=== PATIENT | male | born 1975 | race Two or more races ===

== ENCOUNTER 2021-03-13 08:36 | Inpatient (IN) | payer MEDICAID ==
[2021-03-07 15:49] LABS: BASOPHILS % (AUTO) 0.4 % (0-1); EOSINOPHILS # (AUTO) 0.1 X10'3 (0-0.9); EOSINOPHILS % (AUTO) 1.8 % (0-6); LYMPHOCYTES # (AUTO) 0.9 X10'3 (1.1-4.8); LYMPHOCYTES % (AUTO) 26.5 % (21-51); MEAN CORPUSCULAR HEMOGLOBIN 32.5 PG (27.0-31.0); MEAN CORPUSCULAR HGB CONC 34.7 g/dL (33.0-36.5); MEAN CORPUSCULAR VOLUME 93.6 FL (78-98); MEAN PLATELET VOLUME 7.9 FL (7.4-10.4); MONOCYTES # (AUTO) 0.4 X10'3 (0-0.9); MONOCYTES % (AUTO) 10.7 % (2-12); NEUTROPHILS % (AUTO) 60.6 % (42-75); PRE OP HEMATOCRIT 38.3 % (42.0-52.0); PRE OP HEMOGLOBIN 13.3 g/dL (14.0-17.9); PRE OP PLATELET COUNT 206 X10'3 (140-440); RED BLOOD COUNT 4.09 X10'6 (4.70-6.10); RED CELL DISTRIBUTION WIDTH 13.5 % (11.5-14.5)
[2021-03-07 16:15] LABS: ALBUMIN 4.2 G/DL (3.4-5.0); ALBUMIN/GLOBULIN RATIO 1.1 (1.1-1.5); ALKALINE PHOSPHATASE 96 IU/L (46-116); BLOOD UREA NITROGEN 12 MG/DL (7-18); CALCIUM 9.1 MG/DL (8.5-10.1); CHLORIDE 105 MMOL/L (99-107); CREATININE 0.86 MG/DL (0.60-1.10); PRE OP ALT 37 U/L (30-65); PRE OP ANION GAP 6 (8-16); PRE OP AST 21 U/L (10-37); PRE OP BILIRUB, TOTAL 0.3 MG/DL (0.0-1.0); PRE OP GLUCOSE 94 MG/DL (70-104); PRE OP POTASSIUM 4.3 MMOL/L (3.4-5.1); PRE OP SODIUM 140 MMOL/L (135-145); TOTAL PROTEIN 7.9 G/DL (6.4-8.2); eGFR > 90 ML/MIN
[2021-03-13] VITALS (20 sets, daily range): BP systolic 118–166; BP diastolic 58–98
[~2021-03-13] VITALS: Ht 167.6 cm; Wt 79.8 kg
[2021-03-13] MEDS: INDOCYANINE GREEN 25 MG/10 ML VIAL IV ONE ×2 (05:30→13:55)
[~2021-03-13 08:36] MED LIST: LISI10TA27 PO; MALTODEXTRIN/FRUCTOSE 0.68 KCAL/ML LIQUID 296ML BOTTLE PO ONE; ceFOXitin 2GM-NS 100mL ADDvant 100 ML IV ONE; famotidine 20mg tablet PO ONE; heparin, porcine 5000 units/ml vial SQ ONE; metroNIDAZOLE-Flagyl 500mg/NS 100ML IVPB IV ONE; ringers solution, lacted 1,000 ML IV SCH
[2021-03-13] MEDS ORDERED: BUPIVAcaine/PF 2.5mg/ml (0.25%) 10ml vial ONE (12:01)
[2021-03-13] MEDS ORDERED: povidone-iodine 10% topical ointment 28.4gm TP ONE (12:01)
[2021-03-13] MEDS ORDERED: LIDOcaine 1% W/epiNEPHrine 1:100,000 20ml vial ONE (12:01)
[2021-03-13] MEDS ORDERED: midazolam 1 mg/ML 2ml injection ONE (12:29)
[2021-03-13] MEDS ORDERED: fentaNYL /PF 50mcg/ml 5ml ampule ONE (12:29)
[2021-03-13] MEDS ORDERED: sevoflurane 250ml liquid IH ONE (12:35)
[2021-03-13] MEDS ORDERED: propofol inj 20 ML IV ONE ×2 (13:02→15:20)
[2021-03-13] MEDS ORDERED: rocuronium 10mg/ml inj IV ONE ×2 (13:02→15:23)
[2021-03-13] MEDS ORDERED: ondansetron/PF 4mg/2ml inj ONE (13:02)
[2021-03-13] MEDS ORDERED: LIDOcaine 2% (20mg/ml) 5ml vial ONE (13:02)
[2021-03-13] MEDS ORDERED: dexamethasone sod phosphate 4mg/ml inj. ONE (13:02)
[2021-03-13] MEDS ORDERED: ondansetron/PF 4mg/2ml inj IV PRN (14:55)
[2021-03-13] MEDS ORDERED: labetalol 20mg/4ml (5mg/ml) syringe IV PRN (14:55)
[2021-03-13] MEDS ORDERED: proCHLORperazine 10 MG/2 ml inj IV PRN (14:55)
[2021-03-13] MEDS ORDERED: acetaminophen 1,000mg/100ml IV 100 ML IV PRN (14:55)
[2021-03-13] MEDS ORDERED: morphine 2 MG/ML inj. syringe IV PRN (14:55)
[2021-03-13] MEDS ORDERED: meperidine/PF 25mg/ml syringe IV PRN ×2 (14:55)
[2021-03-13] MEDS ORDERED: ringers solution, lacted 1,000 ML IV SCH (14:55)
[2021-03-13] MEDS ORDERED: hydrALAZINE 20mg/ml inj. IV PRN (14:55)
[2021-03-13] MEDS ORDERED: morphine 10mg/ml inj. ONE (17:52)
[2021-03-13] MEDS ORDERED: sugammadex 200mg/2ml injection IV ONE (18:19)
[2021-03-13] MEDS ORDERED: naloxone 0.4 mg/ml inj IV PRN (18:40)
--- NOTE | 2021-03-13 18:41 | NUR ---
Received from OR via , accompanied by Anesthesiologist DR HUERTA and report given by Anesthesiolgist. PT PRESENTS WITH 20 G RIGHT HAND, 2 BROOKLYNN DRAINS ABD DRESSING DRY AND INTACT. VSS. Addendum: 03/13/21 at 1852 by Roxi Alcaraz RN, RN Amended: Links added.
[2021-03-13] MEDS ORDERED: HYDROmorph./NS 0.2 mg/ml CADD 100 ML IV SCH (19:00)
[2021-03-13] MEDS: meperidine/PF 25mg/ml syringe IV PRN ×2 (19:02→19:22)
[2021-03-13] MEDS: morphine 4 MG/ML inj SYRINge IV PRN ×2 (19:09→19:16)
[2021-03-13] MEDS: HYDROmorph./NS 0.2 mg/ml CADD 100 ML IV SCH ×3 (19:48→23:00)
[2021-03-13] MEDS: heparin, porcine 5000 units/ml vial SQ SCH (20:00)
--- NOTE | 2021-03-13 20:11 | NUR ---
PATIENT [facility] ROOM 350B WITH ALL BELONGINGS AND HOOKED UP TO MONITORS IN ROOM. REPORT GIVEN TO JACKSON SAINI WHO HAS TAKEN OVER PATIENT CARE. Addendum: 03/13/21 at 204 by Roxi Alcaraz RN, RN Amended: Links added.
--- NOTE | 2021-03-13 21:02 | NUR ---
Received patient report from Roxi. MILLI
--- NOTE | 2021-03-13 21:03 | NUR ---
Patient arrived on floor at bedside. VSS
[2021-03-13] MEDS: potassium CL 20mEq in D5-1/2NS 1,000 ML IV SCH (23:08)
[2021-03-14] MEDS ORDERED: ceFOXitin 1 GM/D5W 50mL IVPB 100 ML IV SCH
[2021-03-14 00:35] VITALS: BP 114/71
[2021-03-14] MEDS ORDERED: ceFOXitin inj 1,000 MG in normal saline 100ml IV soln 100 ML IV SCH (00:41)
--- NOTE | 2021-03-14 00:41 | NUR ---
Heparin was held on advice of Charge nurse due to patient's procedure today.
[2021-03-14] MEDS ORDERED: ceFOXitin inj 1,000 MG in dextrose 5%-water 100 ML IV SCH (00:46)
[2021-03-14] MEDS: HYDROmorph./NS 0.2 mg/ml CADD 100 ML IV SCH ×12 (01:00→23:00)
--- NOTE | 2021-03-14 01:43 | NUR ---
Pharmacy was called due to DC of the 0000 Mefoxin was told to scan item code and administer for 0000
[2021-03-14 04:00] VITALS: BP 140/93
--- NOTE | 2021-03-14 06:18 | NUR ---
Problems reprioritized. Patient report given, questions answered & plan of care reviewed with PARVEEN Raymundo.
[2021-03-14 06:37] LABS: BASOPHILS % (AUTO) 0 % (0-1); EOSINOPHILS % (AUTO) 0 % (0-6); HEMATOCRIT 35.7 % (42.0-52.0); HEMOGLOBIN 12.6 g/dl (14.0-17.9); LYMPHOCYTES # (AUTO) 0.5 X10'3 (1.1-4.8); LYMPHOCYTES % (AUTO) 11.5 % (21-51); MEAN CORPUSCULAR HEMOGLOBIN 32.1 PG (27.0-31.0); MEAN CORPUSCULAR HGB CONC 35.3 g/dL (33.0-36.5); MEAN PLATELET VOLUME 8.3 FL (7.4-10.4); MONOCYTES # (AUTO) 0.5 X10'3 (0-0.9); NEUTROPHILS # (AUTO) 3.7 X10'3 (1.8-7.7); NEUTROPHILS % (AUTO) 78.5 % (42-75); PLATELET COUNT 174 X10'3 (140-440); RED BLOOD COUNT 3.93 X10'6 (4.70-6.10); RED CELL DISTRIBUTION WIDTH 13.2 % (11.5-14.5); WHITE BLOOD COUNT 4.7 X10'3 (4.5-11.0)
[2021-03-14 06:55] LABS: ALBUMIN 3.2 G/DL (3.4-5.0); ANION GAP 8 (8-16); BLOOD UREA NITROGEN 10 MG/DL (7-18); BUN/CREATININE RATIO 11.4 (5.4-32.0); CALCIUM 8.2 MG/DL (8.5-10.1); CHLORIDE 106 MMOL/L (99-107); CREATININE 0.88 MG/DL (0.60-1.10); GLUCOSE 124 MG/DL (70-104); SODIUM 141 MMOL/L (135-145); TOTAL CARBON DIOXIDE 26.7 MMOL/L (24-32); eGFR > 90 ML/MIN
[2021-03-14 07:00] VITALS: BP 141/88
[2021-03-14] MEDS: potassium CL 20mEq in D5-1/2NS 1,000 ML IV SCH ×2 (08:00→15:21)
[2021-03-14] MEDS: heparin, porcine 5000 units/ml vial SQ SCH ×2 (09:19→19:39)
[2021-03-14] MEDS ORDERED: ipratropium/albuterol 3ml nebule NEB PRN (09:25)
[2021-03-14] MEDS: lisinopril 10 MG tablet PO SCH (09:27)
[2021-03-14 11:00] VITALS: BP 144/86
[2021-03-14] MEDS: phenazopyridine 100mg tablet PO SCH ×2 (15:21→21:08)
[2021-03-14 17:55] VITALS: BP_SYST 152; BP_SYST 155; BP_DIAS 100
[2021-03-14 18:00] VITALS: BP 142/94
--- NOTE | 2021-03-14 18:45 | NUR ---
Problems reprioritized. Patient report given, questions answered & plan of care reviewed with PARVEEN GOMEZ.
--- NOTE | 2021-03-14 18:45 | NUR ---
Patient in room [facility]. I have received report from PARVEEN Raymundo and had the opportunity to ask questions and assume patient care.
[2021-03-14] MEDS: ondansetron/PF 4mg/2ml inj IV PRN (19:23)
[2021-03-14] MEDS: metoclopramide 5 mg/ml inj IV SCH (19:38)
--- NOTE | 2021-03-14 21:02 | NUR ---
Patient's Pyridium is to be taken with food. Called pharmacy at 2100 and spoke with Cassandra and she said it was ok to give without food.
[2021-03-14] MEDS: tamsulosin 0.4mg capsule PO SCH (21:08)
[2021-03-15] VITALS: BP 150/101
[2021-03-15] MEDS: HYDROmorph./NS 0.2 mg/ml CADD 100 ML IV SCH ×12 (02:00→23:00)
[2021-03-15 04:20] VITALS: BP 123/91
[2021-03-15] MEDS: potassium CL 20mEq in D5-1/2NS 1,000 ML IV SCH ×2 (04:31→18:31)
[2021-03-15] MEDS: metoclopramide 5 mg/ml inj IV SCH ×4 (05:20→20:08)
[2021-03-15 06:33] LABS: BASOPHILS % (AUTO) 0.1 % (0-1); EOSINOPHILS % (AUTO) 0.1 % (0-6); HEMATOCRIT 43.5 % (42.0-52.0); HEMOGLOBIN 14.8 g/dl (14.0-17.9); LYMPHOCYTES # (AUTO) 0.7 X10'3 (1.1-4.8); MEAN CORPUSCULAR HEMOGLOBIN 31.6 PG (27.0-31.0); MEAN CORPUSCULAR HGB CONC 33.9 g/dL (33.0-36.5); MEAN CORPUSCULAR VOLUME 93.2 FL (78-98); MEAN PLATELET VOLUME 8.5 FL (7.4-10.4); MONOCYTES # (AUTO) 0.6 X10'3 (0-0.9); MONOCYTES % (AUTO) 7.7 % (2-12); NEUTROPHILS # (AUTO) 6.1 X10'3 (1.8-7.7); NEUTROPHILS % (AUTO) 83.1 % (42-75); PLATELET COUNT 246 X10'3 (140-440); RED BLOOD COUNT 4.67 X10'6 (4.70-6.10); RED CELL DISTRIBUTION WIDTH 13.3 % (11.5-14.5); WHITE BLOOD COUNT 7.3 X10'3 (4.5-11.0)
--- NOTE | 2021-03-15 06:33 | NUR ---
Problems reprioritized. Patient report given, questions answered & plan of care reviewed with PARVEEN Fletcher.
[2021-03-15 06:45] LABS: ALBUMIN 3.5 G/DL (3.4-5.0); ANION GAP 8 (8-16); BLOOD UREA NITROGEN 8 MG/DL (7-18); BUN/CREATININE RATIO 7.8 (5.4-32.0); CALCIUM 8.3 MG/DL (8.5-10.1); CHLORIDE 102 MMOL/L (99-107); CREATININE 1.02 MG/DL (0.60-1.10); GLUCOSE 169 MG/DL (70-104); SODIUM 136 MMOL/L (135-145); TOTAL CARBON DIOXIDE 26.2 MMOL/L (24-32); eGFR 78 ML/MIN
[2021-03-15 07:00] VITALS: BP 134/99
--- NOTE | 2021-03-15 07:02 | NUR ---
Patient in room [facility]. I have received report from Karlie SAINI and had the opportunity to ask questions and assume patient care.
[2021-03-15] MEDS: ondansetron/PF 4mg/2ml inj IV PRN (07:29)
[2021-03-15] MEDS: heparin, porcine 5000 units/ml vial SQ SCH ×2 (07:56→20:09)
[2021-03-15] MEDS: lisinopril 10 MG tablet PO SCH (07:59)
[2021-03-15] MEDS: phenazopyridine 100mg tablet PO SCH ×3 (08:00→17:36)
[2021-03-15 11:10] VITALS: BP 129/87
[2021-03-15] MEDS ORDERED: normal saline 1000ml 1,000 ML IV ONE (15:10)
[2021-03-15 19:00] VITALS: BP 112/75
[2021-03-15] MEDS: tamsulosin 0.4mg capsule PO SCH (20:08)
[2021-03-15 23:41] VITALS: BP 115/75
[2021-03-16] MEDS: HYDROmorph./NS 0.2 mg/ml CADD 100 ML IV SCH ×12 (01:00→23:00)
[2021-03-16] MEDS: metoclopramide 5 mg/ml inj IV SCH ×4 (02:02→21:03)
--- NOTE | 2021-03-16 06:44 | NUR ---
patient ambulated x2 ileostomy put out 50mls sero sang . BROOKLYNN x2 bilat abdomen left 90mls, right 215 mls sero sang . Continues with Dilaudid cadd with effective management of pain. . Report given to ernestine SAINI
[2021-03-16] MEDS: CADD PCA waste documentation MC PRN (07:08)
[2021-03-16 07:20] VITALS: BP 122/77
[2021-03-16] MEDS: lisinopril 10 MG tablet PO SCH (07:59)
[2021-03-16] MEDS: heparin, porcine 5000 units/ml vial SQ SCH ×2 (08:00→21:03)
[2021-03-16] MEDS: phenazopyridine 100mg tablet PO SCH ×3 (08:00→17:47)
[2021-03-16] MEDS ORDERED: diatr meglu/diatrizoate 30ml oral sol.-(3 dose) bottle PO ONE (08:45)
[2021-03-16] MEDS: potassium CL 20mEq in D5-1/2NS 1,000 ML IV SCH ×2 (09:38→21:00)
[2021-03-16 10:24] LABS: BASOPHILS % (AUTO) 0.3 % (0-1); EOSINOPHILS % (AUTO) 1.2 % (0-6); HEMATOCRIT 40.1 % (42.0-52.0); HEMOGLOBIN 13.7 g/dl (14.0-17.9); LYMPHOCYTES # (AUTO) 0.8 X10'3 (1.1-4.8); LYMPHOCYTES % (AUTO) 22.3 % (21-51); MEAN CORPUSCULAR HEMOGLOBIN 31.4 PG (27.0-31.0); MEAN CORPUSCULAR HGB CONC 34.3 g/dL (33.0-36.5); MEAN CORPUSCULAR VOLUME 91.8 FL (78-98); MEAN PLATELET VOLUME 7.8 FL (7.4-10.4); MONOCYTES # (AUTO) 0.4 X10'3 (0-0.9); MONOCYTES % (AUTO) 13.2 % (2-12); NEUTROPHILS # (AUTO) 2.1 X10'3 (1.8-7.7); PLATELET COUNT 221 X10'3 (140-440); RED BLOOD COUNT 4.36 X10'6 (4.70-6.10); RED CELL DISTRIBUTION WIDTH 13.1 % (11.5-14.5); WHITE BLOOD COUNT 3.4 X10'3 (4.5-11.0)
[2021-03-16 10:30] LABS: ALBUMIN 2.9 G/DL (3.4-5.0); ANION GAP 6 (8-16); BLOOD UREA NITROGEN 6 MG/DL (7-18); BUN/CREATININE RATIO 6.4 (5.4-32.0); C-REACTIVE PROTEIN 12.77 MG/DL (0.0-0.5); CALCIUM 7.7 MG/DL (8.5-10.1); CHLORIDE 98 MMOL/L (99-107); CREATININE 0.94 MG/DL (0.60-1.10); GLUCOSE 128 MG/DL (70-104); POTASSIUM 4.3 MMOL/L (3.5-5.1); SODIUM 136 MMOL/L (135-145); TOTAL CARBON DIOXIDE 32.3 MMOL/L (24-32); eGFR 86 ML/MIN
[2021-03-16 11:00] VITALS: BP 123/83
[2021-03-16 18:00] VITALS: BP 117/78
--- NOTE | 2021-03-16 18:26 | NUR ---
Problems reprioritized. Patient report given, questions answered & plan of care reviewed with Francie RN & SATISH RN.
--- NOTE | 2021-03-16 19:42 | NUR ---
Patient in room [facility]. I have received report from Antonette SAINI and had the opportunity to ask questions and assume patient care.
--- NOTE | 2021-03-16 19:51 | NUR ---
Patient in room [facility]. I have received report from ROHINI SAINI and had the opportunity to ask questions and assume patient care.
[2021-03-16] MEDS: tamsulosin 0.4mg capsule PO SCH (21:03)
[2021-03-17] MEDS: HYDROmorph./NS 0.2 mg/ml CADD 100 ML IV SCH ×12 (01:00→23:00)
[2021-03-17] MEDS: metoclopramide 5 mg/ml inj IV SCH ×4 (03:12→20:47)
--- NOTE | 2021-03-17 06:38 | NUR ---
Problems reprioritized. Patient report given, questions answered & plan of care reviewed with ROHINI SAINI.
--- NOTE | 2021-03-17 06:39 | NUR ---
Problems reprioritized. Patient report given, questions answered & plan of care reviewed with Antonette SAINI.
[2021-03-17] MEDS ORDERED: normal saline 1000ml 1,000 ML IVB ONE (07:35)
[2021-03-17 07:44] LABS: BASOPHILS % (AUTO) 0.2 % (0-1); EOSINOPHILS % (AUTO) 1.6 % (0-6); HEMATOCRIT 36.5 % (42.0-52.0); HEMOGLOBIN 12.7 g/dl (14.0-17.9); LYMPHOCYTES # (AUTO) 0.4 X10'3 (1.1-4.8); LYMPHOCYTES % (AUTO) 15.8 % (21-51); MEAN CORPUSCULAR HEMOGLOBIN 31.6 PG (27.0-31.0); MEAN CORPUSCULAR HGB CONC 34.9 g/dL (33.0-36.5); MEAN CORPUSCULAR VOLUME 90.5 FL (78-98); MEAN PLATELET VOLUME 8.4 FL (7.4-10.4); MONOCYTES # (AUTO) 0.5 X10'3 (0-0.9); MONOCYTES % (AUTO) 18.6 % (2-12); NEUTROPHILS # (AUTO) 1.8 X10'3 (1.8-7.7); NEUTROPHILS % (AUTO) 63.8 % (42-75); PLATELET COUNT 222 X10'3 (140-440); RED BLOOD COUNT 4.03 X10'6 (4.70-6.10); WHITE BLOOD COUNT 2.8 X10'3 (4.5-11.0)
[2021-03-17 07:45] VITALS: BP 130/93
[2021-03-17] MEDS: heparin, porcine 5000 units/ml vial SQ SCH ×2 (08:00→20:47)
[2021-03-17 08:06] LABS: ALBUMIN 2.6 G/DL (3.4-5.0); ANION GAP 7 (8-16); BLOOD UREA NITROGEN 7 MG/DL (7-18); BUN/CREATININE RATIO 8.2 (5.4-32.0); CALCIUM 7.9 MG/DL (8.5-10.1); CHLORIDE 97 MMOL/L (99-107); CREATININE 0.85 MG/DL (0.60-1.10); GLUCOSE 125 MG/DL (70-104); POTASSIUM 3.6 MMOL/L (3.5-5.1); SODIUM 132 MMOL/L (135-145); TOTAL CARBON DIOXIDE 28.1 MMOL/L (24-32); eGFR > 90 ML/MIN
[2021-03-17] MEDS: phenazopyridine 100mg tablet PO SCH ×3 (08:16→17:35)
[2021-03-17] MEDS: lisinopril 10 MG tablet PO SCH (08:17)
[2021-03-17] MEDS: diatr meglu/diatrizoate 30ml oral sol.-(3 dose) bottle PO SCH ×3 (08:20→14:00)
[2021-03-17 08:59] LABS: C-REACTIVE PROTEIN 15.23 MG/DL (0.0-0.5)
[2021-03-17 09:25] LABS: PLATELET ESTIMATE NORMAL; TOTAL CELLS COUNTED 100
[2021-03-17 11:00] VITALS: BP 128/84
[2021-03-17] MEDS: potassium CL 20mEq in D5-1/2NS 1,000 ML IV SCH (11:54)
--- NOTE | 2021-03-17 11:55 | NUR ---
Updated Dr. Dougherty with lab values, and patient status. He would like CT to be done now, with only 2 doses of contrast given. I will notify technical sme of this.
--- NOTE | 2021-03-17 12:05 | NUR ---
Called CT and notified them that Dr. Dougherty would like the scan done now with only 2 doses of Gastroview given. snow technician said that it is not recommended to do that and there are multiple patients ahead of him and he will not be picked up for awhile.
--- NOTE | 2021-03-17 13:25 | NUR ---
Patient has had a total of 100 urine output for this shift. Bladder scan showed 175. aware.
[2021-03-17] MEDS ORDERED: iohexol 300mg/ml 100ml inj. ONE (13:39)
[2021-03-17] MEDS: normal saline 1000ml 1,000 ML IV SCH ×2 (14:45→20:57)
--- NOTE | 2021-03-17 15:04 | NUR ---
Spoke with Dr. Dougherty. He says transfer to PCU for telemetry monitoring is not necessary, patient needs surgical care. He is aware of patients total urine output. He requested the patient have hand irrigation as needed with 10-15mL water into the howard that is in stoma. He is aware of current labs, imagining, and patient status. Addendum: 03/17/21 at 1526 by Antonette Hughes RN Dr. Dougherty also asked for a 26fr with 30mL balloon to have on hold in case he needs it when he rounds next. these supplies have been gathered and will be left at RN station for him.
[2021-03-17 15:31] LABS: BASOPHILS % (AUTO) 0.2 % (0-1); EOSINOPHILS # (AUTO) 0.1 X10'3 (0-0.9); EOSINOPHILS % (AUTO) 1.8 % (0-6); HEMATOCRIT 36.2 % (42.0-52.0); HEMOGLOBIN 12.6 g/dl (14.0-17.9); LYMPHOCYTES # (AUTO) 0.4 X10'3 (1.1-4.8); LYMPHOCYTES % (AUTO) 12.9 % (21-51); MEAN CORPUSCULAR HEMOGLOBIN 31.9 PG (27.0-31.0); MEAN CORPUSCULAR HGB CONC 34.8 g/dL (33.0-36.5); MEAN CORPUSCULAR VOLUME 91.5 FL (78-98); MEAN PLATELET VOLUME 7.9 FL (7.4-10.4); MONOCYTES # (AUTO) 0.5 X10'3 (0-0.9); MONOCYTES % (AUTO) 16.3 % (2-12); NEUTROPHILS # (AUTO) 2.1 X10'3 (1.8-7.7); NEUTROPHILS % (AUTO) 68.8 % (42-75); PLATELET COUNT 219 X10'3 (140-440); RED BLOOD COUNT 3.95 X10'6 (4.70-6.10); RED CELL DISTRIBUTION WIDTH 12.7 % (11.5-14.5)
[2021-03-17] MEDS: ondansetron/PF 4mg/2ml inj IV PRN (17:37)
[2021-03-17 18:00] VITALS: BP 131/87
--- NOTE | 2021-03-17 18:00 | NUR ---
Settings on the dilaudid CADD was not reset during last change. All numbers documented were taken directly from the CADD. I did not attempt to reset or adjust anything. This will need to be done on next cartridge change.
--- NOTE | 2021-03-17 18:45 | NUR ---
Problems reprioritized. Patient report given, questions answered & plan of care reviewed with Prudence & JT, RNs.
[2021-03-17] MEDS: tamsulosin 0.4mg capsule PO SCH (20:47)
--- NOTE | 2021-03-18 | NUR ---
PATIENT VOMITED LARGE AMOUNTS AND PER MD (DR SWEENEY), TO PLACE NJ TUBE FOR ABDOMINAL DISTENSION. NJ PLACED AND HAD 1000CC OUT. WILL CONTINUE TO MONITOR.
[2021-03-18 00:42] VITALS: BP 123/73
[2021-03-18] MEDS: HYDROmorph./NS 0.2 mg/ml CADD 100 ML IV SCH ×12 (01:00→23:00)
[2021-03-18] MEDS: metoclopramide 5 mg/ml inj IV SCH ×4 (02:53→20:16)
[2021-03-18] MEDS: normal saline 1000ml 1,000 ML IV SCH (02:54)
[2021-03-18 05:55] LABS: BASOPHILS % (AUTO) 0.3 % (0-1); EOSINOPHILS % (AUTO) 1.5 % (0-6); HEMATOCRIT 36.3 % (42.0-52.0); HEMOGLOBIN 12.5 g/dl (14.0-17.9); LYMPHOCYTES # (AUTO) 0.4 X10'3 (1.1-4.8); LYMPHOCYTES % (AUTO) 16.9 % (21-51); MEAN CORPUSCULAR HEMOGLOBIN 31.6 PG (27.0-31.0); MEAN CORPUSCULAR HGB CONC 34.4 g/dL (33.0-36.5); MEAN CORPUSCULAR VOLUME 91.8 FL (78-98); MEAN PLATELET VOLUME 8.5 FL (7.4-10.4); MONOCYTES # (AUTO) 0.4 X10'3 (0-0.9); MONOCYTES % (AUTO) 14.8 % (2-12); NEUTROPHILS # (AUTO) 1.6 X10'3 (1.8-7.7); NEUTROPHILS % (AUTO) 66.5 % (42-75); PLATELET COUNT 227 X10'3 (140-440); RED BLOOD COUNT 3.95 X10'6 (4.70-6.10); RED CELL DISTRIBUTION WIDTH 12.6 % (11.5-14.5); WHITE BLOOD COUNT 2.5 X10'3 (4.5-11.0)
[2021-03-18 06:29] LABS: ALBUMIN 2.4 G/DL (3.4-5.0); ANION GAP 11 (8-16); BLOOD UREA NITROGEN 7 MG/DL (7-18); BUN/CREATININE RATIO 9.5 (5.4-32.0); C-REACTIVE PROTEIN 10.61 MG/DL (0.0-0.5); CALCIUM 7.8 MG/DL (8.5-10.1); CHLORIDE 98 MMOL/L (99-107); CREATININE 0.74 MG/DL (0.60-1.10); GLUCOSE 100 MG/DL (70-104); POTASSIUM 3.3 MMOL/L (3.5-5.1); SODIUM 136 MMOL/L (135-145); TOTAL CARBON DIOXIDE 26.9 MMOL/L (24-32); eGFR > 90 ML/MIN
--- NOTE | 2021-03-18 06:43 | NUR ---
Problems reprioritized. Patient report given, questions answered & plan of care reviewed with CHICA SAINI.
[2021-03-18 07:00] VITALS: BP 139/89
[2021-03-18 07:30] LABS: TOTAL CELLS COUNTED 100
[2021-03-18 07:31] LABS: PLATELET ESTIMATE NORMAL
[2021-03-18] MEDS: lisinopril 10 MG tablet PO SCH (07:55)
[2021-03-18] MEDS ORDERED: albumin (human) 25% 100 ML IV solution IV ONE (07:55)
[2021-03-18] MEDS: heparin, porcine 5000 units/ml vial SQ SCH ×2 (07:56→20:17)
[2021-03-18] MEDS: phenazopyridine 100mg tablet PO SCH ×3 (07:56→17:46)
--- NOTE | 2021-03-18 11:01 | NUR ---
Initial: Pt admit with colorectal cancer. Pt is POD #5 s/p colon resection with diverting loop ileostomy. Pt s/p CT of abdomen and pelvis 03/17 which indicated near complete severe partial SBO just proximal to the ostomy per report. Per claim adjuster pt with large amount of emesis so NJ tube was placed per MD recommendations and pt with 1000 mL out. Pt continues with active clear liquid diet however has been documented as NPO since dinner 03/14 in care trends. Recommend changing diet order to NPO if pt truly to be NPO at this time, attempted to d/w RN however RN unavailable, left message with resource. LBM 03/17 documented with 950 mL stool output. If unable to advance PO diet with prolonged return of bowel function pt would benefit from PN to meet estimated nutrient needs. Will continue to follow closely. Recommendations: 1) Advance to low fiber/low residue diet as medically indicated 2) Consider PN to meet estimated nutrient needs if unable to advance PO diet with prolonged return of bowel function/SBO 3) Bowel care per rx 4) Scaled weights per rx 5) Ileostomy nutrition therapy education once stable Addendum: 03/18/21 at [address] Amended: Links added.
[2021-03-18 11:55] VITALS: BP 138/79
[2021-03-18] MEDS: Potassium Cl inj 20 MEQ in normal saline 1000ml 990 ML IV SCH ×3 (14:45→21:40)
--- NOTE | 2021-03-18 16:47 | NUR ---
Pt c/o discomfort in upper L chest @ 1410. No changes in discomfort w/ deep breathing. Pt w/o any other complaints or signs of distress VS= 140/89, HR 99, 96% RA, RR 20. Sarah SAINI notified. EKG obtained. Dr. Zuniga was notified and arrived on unit to review EKG report. No new orders given. Pt's discomfort subsided, and he requested to ambulate w/ assistance.
[2021-03-18] MEDS: cefepime 2g/NS 100ml ADVANTAGE 100 ML IV SCH (17:47)
[2021-03-18 18:30] VITALS: BP 151/84
[2021-03-18] MEDS: tamsulosin 0.4mg capsule PO SCH (20:17)
[2021-03-18] MEDS: ondansetron/PF 4mg/2ml inj IV PRN (21:50)
[2021-03-19] VITALS: BP 132/82
[2021-03-19] MEDS: HYDROmorph./NS 0.2 mg/ml CADD 100 ML IV SCH ×12 (01:24→23:17)
[2021-03-19] MEDS: Potassium Cl inj 20 MEQ in normal saline 1000ml 990 ML IV SCH ×3 (01:27→21:39)
[2021-03-19] MEDS: metoclopramide 5 mg/ml inj IV SCH ×4 (02:09→21:37)
--- NOTE | 2021-03-19 06:10 | NUR ---
Patient in room [facility]. I have received report from PARVEEN Parra & SATISH RN and had the opportunity to ask questions and assume patient care.
[2021-03-19 06:30] VITALS: BP 128/80
[2021-03-19 06:48] LABS: BASOPHILS % (AUTO) 0.1 % (0-1); EOSINOPHILS % (AUTO) 1.5 % (0-6); HEMATOCRIT 34.2 % (42.0-52.0); HEMOGLOBIN 11.8 g/dl (14.0-17.9); LYMPHOCYTES # (AUTO) 0.4 X10'3 (1.1-4.8); LYMPHOCYTES % (AUTO) 15.7 % (21-51); MEAN CORPUSCULAR HEMOGLOBIN 31.9 PG (27.0-31.0); MEAN CORPUSCULAR HGB CONC 34.6 g/dL (33.0-36.5); MEAN CORPUSCULAR VOLUME 92.3 FL (78-98); MEAN PLATELET VOLUME 8.2 FL (7.4-10.4); MONOCYTES # (AUTO) 0.5 X10'3 (0-0.9); MONOCYTES % (AUTO) 18.4 % (2-12); NEUTROPHILS # (AUTO) 1.7 X10'3 (1.8-7.7); NEUTROPHILS % (AUTO) 64.3 % (42-75); PLATELET COUNT 216 X10'3 (140-440); RED CELL DISTRIBUTION WIDTH 12.6 % (11.5-14.5); WHITE BLOOD COUNT 2.6 X10'3 (4.5-11.0)
[2021-03-19 07:00] LABS: ALBUMIN 2.9 G/DL (3.4-5.0); ANION GAP 11 (8-16); BLOOD UREA NITROGEN 8 MG/DL (7-18); BUN/CREATININE RATIO 9.6 (5.4-32.0); C-REACTIVE PROTEIN 18.53 MG/DL (0.0-0.5); CHLORIDE 102 MMOL/L (99-107); CREATININE 0.83 MG/DL (0.60-1.10); GLUCOSE 76 MG/DL (70-104); POTASSIUM 3.7 MMOL/L (3.5-5.1); PREALBUMIN 11.1 MG/DL (19-36); SODIUM 138 MMOL/L (135-145); TOTAL CARBON DIOXIDE 25.5 MMOL/L (24-32); eGFR > 90 ML/MIN
--- NOTE | 2021-03-19 07:00 | NUR ---
I have reviewed and I disagree with some of the interventions, assessments performed and documented by PARVEEN Tee. Corrections have been made appropriately.
--- NOTE | 2021-03-19 07:01 | NUR ---
Problems reprioritized. Patient report given, questions answered & plan of care reviewed with PARVEEN Romeo.
[2021-03-19 07:34] LABS: TOTAL CELLS COUNTED 100
[2021-03-19 07:35] LABS: PLATELET ESTIMATE NORMAL; POLYCHROMASIA 1+
[2021-03-19] MEDS: phenazopyridine 100mg tablet PO SCH ×3 (09:08→17:56)
[2021-03-19] MEDS: cefepime 2g/NS 100ml ADVANTAGE 100 ML IV SCH ×2 (09:08→21:39)
[2021-03-19] MEDS: lisinopril 10 MG tablet PO SCH (09:08)
[2021-03-19] MEDS: heparin, porcine 5000 units/ml vial SQ SCH ×2 (09:09→21:37)
[2021-03-19 11:00] VITALS: BP 120/75
[2021-03-19] MEDS ORDERED: furosemide 20 MG/2 ML vial IV ONE (11:25)
[2021-03-19 12:17] LABS: AMYLASE 40 U/L (25-115); LIPASE 57 U/L (73-393); TROPONIN I < 0.04 NG/ML (0.0-0.05)
[2021-03-19] MEDS: acetaminophen 325mg tablet PO PRN (12:32)
[2021-03-19 12:58] LABS: CLARITY,URINE CLEAR (Clear); COLOR,URINE ORANGE (Yellow)
[2021-03-19 13:11] LABS: UA COLLECTION TYPE NON-SPECIFIED
[2021-03-19 13:16] LABS: BACTERIA,URINE NONE SEEN /HPF (Neg); MUCUS STRANDS NONE SEEN /LPF (Neg); RBC,URINE NONE SEEN /HPF (0-2); SQUAMOUS EPITHELIAL CELL,UR FEW /LPF (FEW); WBC,URINE 0-4 /HPF (0-4)
--- NOTE | 2021-03-19 19:40 | NUR ---
Patient in room [facility]. I have received report from PARVEEN Romeo and had the opportunity to ask questions and assume patient care.
--- NOTE | 2021-03-19 19:40 | NUR ---
Problems reprioritized. Patient report given, questions answered & plan of care reviewed with PARVEEN Ziegler.
[2021-03-19 19:42] VITALS: BP 152/100
[2021-03-19] MEDS: tamsulosin 0.4mg capsule PO SCH (21:39)
[2021-03-19] MEDS: CADD PCA waste documentation MC PRN (23:26)
[2021-03-19 23:35] VITALS: BP 124/78
[2021-03-20] MEDS: HYDROmorph./NS 0.2 mg/ml CADD 100 ML IV SCH ×13 (01:00→23:57)
[2021-03-20] MEDS: metoclopramide 5 mg/ml inj IV SCH ×4 (02:19→21:10)
[2021-03-20 05:59] LABS: BASOPHILS % (AUTO) 0.2 % (0-1); EOSINOPHILS # (AUTO) 0.1 X10'3 (0-0.9); HEMATOCRIT 36.4 % (42.0-52.0); HEMOGLOBIN 12.4 g/dl (14.0-17.9); LYMPHOCYTES # (AUTO) 0.6 X10'3 (1.1-4.8); LYMPHOCYTES % (AUTO) 17.5 % (21-51); MEAN CORPUSCULAR HEMOGLOBIN 31.1 PG (27.0-31.0); MEAN CORPUSCULAR HGB CONC 34.1 g/dL (33.0-36.5); MEAN CORPUSCULAR VOLUME 91.3 FL (78-98); MEAN PLATELET VOLUME 8.2 FL (7.4-10.4); MONOCYTES # (AUTO) 0.7 X10'3 (0-0.9); MONOCYTES % (AUTO) 18.7 % (2-12); NEUTROPHILS # (AUTO) 2.1 X10'3 (1.8-7.7); NEUTROPHILS % (AUTO) 61.6 % (42-75); PLATELET COUNT 263 X10'3 (140-440); RED BLOOD COUNT 3.99 X10'6 (4.70-6.10); RED CELL DISTRIBUTION WIDTH 12.6 % (11.5-14.5); WHITE BLOOD COUNT 3.5 X10'3 (4.5-11.0)
[2021-03-20 06:21] LABS: ALANINE AMINOTRANSFERASE 23 U/L (12-78); ALBUMIN 2.8 G/DL (3.4-5.0); ALBUMIN/GLOBULIN RATIO 0.7 (1.1-1.5); ALKALINE PHOSPHATASE 71 IU/L (46-116); ANION GAP 14 (8-16); ASPARTATE AMINO TRANSFERASE 26 U/L (10-37); BILIRUBIN,TOTAL 2.3 MG/DL (0.1-1.0); BLOOD UREA NITROGEN 11 MG/DL (7-18); BUN/CREATININE RATIO 12.5 (5.4-32.0); C-REACTIVE PROTEIN 24.23 MG/DL (0.0-0.5); CALCIUM 8.3 MG/DL (8.5-10.1); CHLORIDE 100 MMOL/L (99-107); CREATININE 0.88 MG/DL (0.60-1.10); GLUCOSE 80 MG/DL (70-104); POTASSIUM 3.8 MMOL/L (3.5-5.1); SODIUM 137 MMOL/L (135-145); TOTAL CARBON DIOXIDE 23.1 MMOL/L (24-32); TOTAL PROTEIN 6.8 G/DL (6.4-8.2); eGFR > 90 ML/MIN
--- NOTE | 2021-03-20 06:22 | NUR ---
Patient in room [facility]. I have received report from Karlie SAINI and had the opportunity to ask questions and assume patient care.
--- NOTE | 2021-03-20 06:29 | NUR ---
Problems reprioritized. Patient report given, questions answered & plan of care reviewed with PARVENE Jo.
[2021-03-20 06:51] LABS: TOTAL CELLS COUNTED 100
[2021-03-20 06:52] LABS: LARGE PLATELETS FEW; PLATELET ESTIMATE NORMAL
[2021-03-20 07:00] VITALS: BP 168/95
[2021-03-20] MEDS: lactose-reduced food (Ensure High Protein) 237ml bottle PO SCH ×3 (08:00→18:35)
[2021-03-20] MEDS: cefepime 2g/NS 100ml ADVANTAGE 100 ML IV SCH ×2 (08:23→21:10)
[2021-03-20] MEDS: phenazopyridine 100mg tablet PO SCH ×3 (08:23→18:36)
[2021-03-20] MEDS: lisinopril 10 MG tablet PO SCH (08:24)
[2021-03-20] MEDS: heparin, porcine 5000 units/ml vial SQ SCH ×2 (08:24→21:11)
[2021-03-20] MEDS ORDERED: furosemide 20 MG/2 ML vial IV ONE (10:15)
[2021-03-20] MEDS: Potassium Cl inj 20 MEQ in normal saline 1000ml 990 ML IV SCH (11:55)
[2021-03-20 12:15] VITALS: BP 133/90
--- NOTE | 2021-03-20 16:16 | NUR ---
Ostomy teaching started. I was able to give information and teaching papers in bolivian from [employer] website. Patient gave me permission to sign up for there secure start program. He is hoping the ostomy is not permanent. I showed them how to measure and apply a new ostomy bag, explained how to clean the skin and to avoid soaps and lotions. I showed how to empty the bag and clean he end and secure it again. The patient still has a howard coming out of the stoma so I did not change the bag at this time. Please make sure they have a box of ostomy kits measures 57mm to take home. Addendum: 03/20/21 at 1618 by Lida Booker RN Amended: Links added.
[2021-03-20 18:00] VITALS: BP 119/91
--- NOTE | 2021-03-20 18:25 | NUR ---
Problems reprioritized. Patient report given, questions answered & plan of care reviewed with Roldan SAINI.
[2021-03-20 19:00] VITALS: BP 119/91
[2021-03-20] MEDS: tamsulosin 0.4mg capsule PO SCH (21:10)
[2021-03-20 23:54] VITALS: BP 135/93
[2021-03-20] MEDS: CADD PCA waste documentation MC PRN (23:59)
[2021-03-21] MEDS: Potassium Cl inj 20 MEQ in normal saline 1000ml 990 ML IV SCH (02:01)
[2021-03-21] MEDS: metoclopramide 5 mg/ml inj IV SCH ×4 (02:01→20:17)
[2021-03-21] MEDS: HYDROmorph./NS 0.2 mg/ml CADD 100 ML IV SCH ×3 (03:00→07:00)
[2021-03-21 06:46] LABS: BASOPHILS % (AUTO) 0.4 % (0-1); EOSINOPHILS # (AUTO) 0.1 X10'3 (0-0.9); EOSINOPHILS % (AUTO) 1.8 % (0-6); HEMATOCRIT 38.2 % (42.0-52.0); HEMOGLOBIN 13.4 g/dl (14.0-17.9); LYMPHOCYTES # (AUTO) 0.7 X10'3 (1.1-4.8); LYMPHOCYTES % (AUTO) 14.1 % (21-51); MEAN CORPUSCULAR HEMOGLOBIN 32.2 PG (27.0-31.0); MEAN CORPUSCULAR HGB CONC 35.2 g/dL (33.0-36.5); MEAN CORPUSCULAR VOLUME 91.5 FL (78-98); MEAN PLATELET VOLUME 8.3 FL (7.4-10.4); MONOCYTES # (AUTO) 0.7 X10'3 (0-0.9); MONOCYTES % (AUTO) 13.4 % (2-12); NEUTROPHILS # (AUTO) 3.7 X10'3 (1.8-7.7); NEUTROPHILS % (AUTO) 70.3 % (42-75); PLATELET COUNT 329 X10'3 (140-440); RED BLOOD COUNT 4.18 X10'6 (4.70-6.10); WHITE BLOOD COUNT 5.2 X10'3 (4.5-11.0)
--- NOTE | 2021-03-21 07:05 | NUR ---
Problems reprioritized. Patient report given, questions answered & plan of care reviewed with ROHINI. Addendum: 03/21/21 at 0705 by Bora Tripp RN Amended: Links added.
[2021-03-21 07:07] LABS: ALBUMIN 2.9 G/DL (3.4-5.0); ANION GAP 11 (8-16); BLOOD UREA NITROGEN 14 MG/DL (7-18); BUN/CREATININE RATIO 14.6 (5.4-32.0); C-REACTIVE PROTEIN 22.09 MG/DL (0.0-0.5); CALCIUM 8.6 MG/DL (8.5-10.1); CHLORIDE 99 MMOL/L (99-107); CREATININE 0.96 MG/DL (0.60-1.10); GLUCOSE 149 MG/DL (70-104); POTASSIUM 3.8 MMOL/L (3.5-5.1); SODIUM 136 MMOL/L (135-145); TOTAL CARBON DIOXIDE 26.4 MMOL/L (24-32); eGFR 84 ML/MIN
[2021-03-21 07:10] VITALS: BP 107/70
[2021-03-21] MEDS: phenazopyridine 100mg tablet PO SCH ×3 (08:36→17:57)
[2021-03-21] MEDS: lisinopril 10 MG tablet PO SCH (08:36)
[2021-03-21] MEDS: lactose-reduced food (Ensure High Protein) 237ml bottle PO SCH ×3 (08:37→17:58)
[2021-03-21] MEDS: cefepime 2g/NS 100ml ADVANTAGE 100 ML IV SCH ×2 (08:37→20:17)
[2021-03-21] MEDS: heparin, porcine 5000 units/ml vial SQ SCH ×2 (08:37→20:18)
[2021-03-21] MEDS: CADD PCA waste documentation MC PRN (09:03)
[2021-03-21] MEDS: HYDROcodone/acetaminophen 5mg/325mg tablet PO PRN ×2 (09:29→14:47)
--- NOTE | 2021-03-21 11:46 | NUR ---
Reassessment: Pt newly advanced to PO diet 03/20, consumed about 50% of Clear liquid diet and 50% of ONS. Pt advanced to Full liquid diet today and ate 100% of breakfast and 75% of ONS. Provided pt w/ verbal and written ileostomy education w/ help of process developer, pt primarily bruneian speaking. Pt receptive of education. Pt noted w/ 450ml stool output this morning. Will continue to monitor. Recommendations: 1) Advance to low fiber/low residue diet as medically indicate 2) Continue Ensure High Protein TID 3) Bowel care per rx 4) Scaled weights per rx Addendum: 03/21/21 at [address] Amended: Links added.
[2021-03-21] MEDS: valacyclovir 500mg tablet PO SCH ×2 (11:48→20:17)
[2021-03-21 12:00] VITALS: BP 118/85
[2021-03-21 15:15] LABS: C DIFF ANTIGEN NEGATIVE (NEGATIVE); C DIFF SPECIMEN=DIARRHEA? ACCEPTABLE; C DIFFICILE TOXINS A&B NEGATIVE (Neg)
[2021-03-21 19:00] VITALS: BP 133/94
--- NOTE | 2021-03-21 19:04 | NUR ---
Problems reprioritized. Patient report given, questions answered & plan of care reviewed with PARVEEN Fletcher.
--- NOTE | 2021-03-21 19:12 | NUR ---
Patient in room [facility]. I have received report from ernestine SAINI and had the opportunity to ask questions and assume patient care.
[2021-03-21] MEDS: tamsulosin 0.4mg capsule PO SCH (20:17)
[2021-03-21] MEDS: ondansetron/PF 4mg/2ml inj IV PRN (23:42)
--- NOTE | 2021-03-21 23:47 | NUR ---
Pariwnr vomited mod amount of yellowish emesis. zofran administered will continue to monitor. ileostomy working well liquid brownish drainage. 200mls
[2021-03-22] VITALS: BP 131/92
[2021-03-22] MEDS: metoclopramide 5 mg/ml inj IV SCH ×4 (03:02→19:28)
[2021-03-22 06:10] LABS: BASOPHILS % (AUTO) 0.3 % (0-1); HEMATOCRIT 39.3 % (42.0-52.0); HEMOGLOBIN 13.7 g/dl (14.0-17.9); LYMPHOCYTES # (AUTO) 0.6 X10'3 (1.1-4.8); LYMPHOCYTES % (AUTO) 12.8 % (21-51); MEAN CORPUSCULAR HEMOGLOBIN 31.6 PG (27.0-31.0); MEAN CORPUSCULAR HGB CONC 34.8 g/dL (33.0-36.5); MEAN CORPUSCULAR VOLUME 90.8 FL (78-98); MEAN PLATELET VOLUME 8.1 FL (7.4-10.4); MONOCYTES # (AUTO) 0.6 X10'3 (0-0.9); MONOCYTES % (AUTO) 12.1 % (2-12); NEUTROPHILS # (AUTO) 3.7 X10'3 (1.8-7.7); NEUTROPHILS % (AUTO) 73.8 % (42-75); PLATELET COUNT 343 X10'3 (140-440); RED BLOOD COUNT 4.33 X10'6 (4.70-6.10); RED CELL DISTRIBUTION WIDTH 12.8 % (11.5-14.5)
[2021-03-22 06:23] LABS: ALBUMIN 3.2 G/DL (3.4-5.0); ANION GAP 13 (8-16); BLOOD UREA NITROGEN 16 MG/DL (7-18); BUN/CREATININE RATIO 15.1 (5.4-32.0); C-REACTIVE PROTEIN 14.52 MG/DL (0.0-0.5); CALCIUM 9.2 MG/DL (8.5-10.1); CHLORIDE 96 MMOL/L (99-107); CREATININE 1.06 MG/DL (0.60-1.10); GLUCOSE 138 MG/DL (70-104); POTASSIUM 3.9 MMOL/L (3.5-5.1); SODIUM 135 MMOL/L (135-145); TOTAL CARBON DIOXIDE 25.7 MMOL/L (24-32); eGFR 75 ML/MIN
[2021-03-22 07:10] VITALS: BP 115/81
[2021-03-22] MEDS: valacyclovir 500mg tablet PO SCH ×2 (07:31→19:29)
[2021-03-22] MEDS: lisinopril 10 MG tablet PO SCH (07:31)
[2021-03-22] MEDS: heparin, porcine 5000 units/ml vial SQ SCH ×2 (07:32→19:28)
[2021-03-22] MEDS: phenazopyridine 100mg tablet PO SCH ×3 (07:32→17:39)
[2021-03-22] MEDS: acetaminophen 325mg tablet PO PRN (07:32)
[2021-03-22] MEDS: cefepime 2g/NS 100ml ADVANTAGE 100 ML IV SCH (07:32)
[2021-03-22] MEDS: lactose-reduced food (Ensure High Protein) 237ml bottle PO SCH ×4 (08:00→19:46)
[2021-03-22] MEDS ORDERED: traMADol 50MG tablet PO PRN (09:00)
[2021-03-22 12:00] VITALS: BP 115/86
[2021-03-22] MEDS ORDERED: normal saline 1000ml 1,000 ML IV SCH (12:30)
[2021-03-22] MEDS ORDERED: normal saline 1000ml 1,000 ML IVB ONE (14:15)
--- NOTE | 2021-03-22 18:28 | NUR ---
Problems reprioritized. Patient report given, questions answered & plan of care reviewed with PARVEEN Ziegler.
[2021-03-22 19:00] VITALS: BP 109/79
--- NOTE | 2021-03-22 19:18 | NUR ---
Patient in room [facility]. I have received report from PARVEEN Whitman and had the opportunity to ask questions and assume patient care.
[2021-03-22] MEDS: tamsulosin 0.4mg capsule PO SCH (22:08)
[2021-03-23] VITALS: BP 114/83
[2021-03-23] MEDS: metoclopramide 5 mg/ml inj IV SCH ×2 (01:34→08:24)
--- NOTE | 2021-03-23 06:31 | NUR ---
Problems reprioritized. Patient report given, questions answered & plan of care reviewed with PARVEEN Whitman.
[2021-03-23 07:00] VITALS: BP 126/88
[2021-03-23 07:41] LABS: BASOPHILS % (AUTO) 0.3 % (0-1); EOSINOPHILS # (AUTO) 0.1 X10'3 (0-0.9); EOSINOPHILS % (AUTO) 1.2 % (0-6); HEMATOCRIT 38.3 % (42.0-52.0); HEMOGLOBIN 13.2 g/dl (14.0-17.9); LYMPHOCYTES # (AUTO) 0.8 X10'3 (1.1-4.8); LYMPHOCYTES % (AUTO) 13.9 % (21-51); MEAN CORPUSCULAR HEMOGLOBIN 31.1 PG (27.0-31.0); MEAN CORPUSCULAR HGB CONC 34.3 g/dL (33.0-36.5); MEAN CORPUSCULAR VOLUME 90.5 FL (78-98); MEAN PLATELET VOLUME 8.3 FL (7.4-10.4); MONOCYTES # (AUTO) 0.6 X10'3 (0-0.9); MONOCYTES % (AUTO) 10.2 % (2-12); NEUTROPHILS # (AUTO) 4.3 X10'3 (1.8-7.7); NEUTROPHILS % (AUTO) 74.4 % (42-75); PLATELET COUNT 364 X10'3 (140-440); RED BLOOD COUNT 4.24 X10'6 (4.70-6.10); RED CELL DISTRIBUTION WIDTH 12.7 % (11.5-14.5); WHITE BLOOD COUNT 5.8 X10'3 (4.5-11.0)
[2021-03-23 07:54] LABS: ALBUMIN 3.1 G/DL (3.4-5.0); ANION GAP 11 (8-16); BLOOD UREA NITROGEN 16 MG/DL (7-18); BUN/CREATININE RATIO 16.3 (5.4-32.0); C-REACTIVE PROTEIN 6.94 MG/DL (0.0-0.5); CALCIUM 8.4 MG/DL (8.5-10.1); CHLORIDE 95 MMOL/L (99-107); CREATININE 0.98 MG/DL (0.60-1.10); GLUCOSE 126 MG/DL (70-104); POTASSIUM 3.4 MMOL/L (3.5-5.1); SODIUM 133 MMOL/L (135-145); TOTAL CARBON DIOXIDE 26.6 MMOL/L (24-32); eGFR 82 ML/MIN
[2021-03-23] MEDS: phenazopyridine 100mg tablet PO SCH (08:23)
[2021-03-23] MEDS: heparin, porcine 5000 units/ml vial SQ SCH (08:24)
[2021-03-23] MEDS: lisinopril 10 MG tablet PO SCH (08:24)
[2021-03-23] MEDS: valacyclovir 500mg tablet PO SCH (08:24)
--- NOTE | 2021-03-23 09:48 | NUR ---
PAGER ID: [phone] MESSAGE: Jc BeeB: returning call regarding this patient. thanks! [phone] wes
[2021-03-23] MEDS ORDERED: ONDA4TAB12 PO (10:53)
[2021-03-23] MEDS ORDERED: TRAM50TA2 PO (10:53)
[2021-03-23] MEDS ORDERED: VALA500T41 PO (10:53)
[2021-03-23] MEDS ORDERED: potassium Cl 20 mEq SR tablet PO STA (10:53)
[2021-03-23 12:00] VITALS: BP 126/84
--- NOTE | 2021-03-23 12:51 | NUR ---
Patient stable and appropriate for discharge home with . IV removed, all belongings taken from room. New prescriptions given to patient. All discharge instructions and education given and reviewed with patient and . Myself, Dr. Dougherty, patient, , and a Citizen [place] speaking tech were at bedside instructing patient. Him and his verbalized understanding of emptying/changing ileostomy. Also they verbalized the importance of measuring intake and output. He will be measuring urine and stool separately and he knows to call Dr. Dougherty if the amount of stool is greater than the amount of urine. He will be following up in one week with Dr. Dougherty, Home health will follow up with patient. Extra ostomy supplies have been sent to his house already.
== END 2021-03-23 12:45 | disposition home or self-care (01) | DRG 230 ==
LOC: PAS IN 08:36 → SUR 3N 19:00
PROVIDERS: ADMIT Colon & Rectal Surgery; ATTEND Colon & Rectal Surgery
PROC: 0D1B0Z4 Bypass Ileum to Cutaneous, Open Approach (ICD-10-PCS; 2021-03-13)
PROC: 0DBN4ZZ Excision of Sigmoid Colon, Percutaneous Endoscopic Approach (ICD-10-PCS; 2021-03-13)
PROC: 0DBP4ZZ Excision of Rectum, Percutaneous Endoscopic Approach (ICD-10-PCS; principal; 2021-03-13 12:35)
PROC: BW211ZZ Computerized Tomography (CT Scan) of Abdomen and Pelvis using Low Osmolar Contrast (ICD-10-PCS; 2021-03-17)
DX: C19 Malignant neoplasm of rectosigmoid junction (principal); J96.00 Acute respiratory failure, unspecified whether with hypoxia or hypercapnia; K56.600 Partial intestinal obstruction, unspecified as to cause; Q43.8 Other specified congenital malformations of intestine; B00.9 Herpesviral infection, unspecified; Z20.822 Contact with and (suspected) exposure to COVID-19; K56.7 Ileus, unspecified; E87.6 Hypokalemia; I10 Essential (primary) hypertension; Z83.3 Family history of diabetes mellitus; Z85.048 Personal history of other malignant neoplasm of rectum, rectosigmoid junction, and anus; Z79.899 Other long term (current) drug therapy; T41.45XA Adverse effect of unspecified anesthetic, initial encounter
CPT/HCPCS: 36415; 71045; 74018; 74177; 76700; 80048; 80053; 81001; 82150; 82570; 82948; 83605; 83690; 84134; 84484; 85007; 85025; 86140; 86885; 86900; 86901; 87081; 87324; 87449; 87635; 93005; 94760; A4215; A4618; A6402; A7000; C1758; C9399; G0378; J0131; J0692; J0694; J0780; J1100; J1170; J1644; J1940; J2001; J2175; J2250; J2270; J2405; J2704; J2765; J3010; J3480; J3490; J7030; J7060; J7120; P9047; Q9963; Q9967

== ENCOUNTER 2021-06-28 08:30 | Inpatient (IN) | payer MEDICAID ==
[2021-06-26 13:58] LABS: BASOPHILS % (AUTO) 0.5 % (0-1); EOSINOPHILS # (AUTO) 0.1 X10'3 (0-0.9); EOSINOPHILS % (AUTO) 1.9 % (0-6); LYMPHOCYTES # (AUTO) 0.8 X10'3 (1.1-4.8); LYMPHOCYTES % (AUTO) 22.6 % (21-51); MEAN CORPUSCULAR HEMOGLOBIN 31.3 PG (27.0-31.0); MEAN CORPUSCULAR HGB CONC 34.3 g/dL (33.0-36.5); MEAN CORPUSCULAR VOLUME 91.3 FL (78-98); MEAN PLATELET VOLUME 8.1 FL (7.4-10.4); MONOCYTES # (AUTO) 0.4 X10'3 (0-0.9); MONOCYTES % (AUTO) 11.2 % (2-12); NEUTROPHILS # (AUTO) 2.2 X10'3 (1.8-7.7); NEUTROPHILS % (AUTO) 63.8 % (42-75); PRE OP HEMATOCRIT 39.2 % (42.0-52.0); PRE OP HEMOGLOBIN 13.4 g/dL (14.0-17.9); PRE OP PLATELET COUNT 213 X10'3 (140-440); RED BLOOD COUNT 4.29 X10'6 (4.70-6.10); RED CELL DISTRIBUTION WIDTH 14.9 % (11.5-14.5)
[2021-06-26 14:12] LABS: ALBUMIN 3.8 G/DL (3.4-5.0); ALBUMIN/GLOBULIN RATIO 0.9 (1.1-1.5); ALKALINE PHOSPHATASE 110 IU/L (46-116); BLOOD UREA NITROGEN 15 MG/DL (7-18); BUN/CREATININE RATIO 11.3 (5.4-32.0); CALCIUM 8.3 MG/DL (8.5-10.1); CHLORIDE 104 MMOL/L (99-107); CREATININE 1.33 MG/DL (0.60-1.10); PRE OP ALT 53 U/L (30-65); PRE OP ANION GAP 6 (8-16); PRE OP AST 26 U/L (10-37); PRE OP BILIRUB, TOTAL 0.3 MG/DL (0.0-1.0); PRE OP GLUCOSE 81 MG/DL (70-104); PRE OP POTASSIUM 4.2 MMOL/L (3.4-5.1); PRE OP SODIUM 140 MMOL/L (135-145); TOTAL PROTEIN 7.9 G/DL (6.4-8.2); eGFR 58 ML/MIN
[2021-06-27] MEDS: HYDROmorph./NS 0.2 mg/ml CADD 100 ML IV SCH (23:00)
[2021-06-28] VITALS (10 sets, daily range): BP systolic 123–144; BP diastolic 69–91
[~2021-06-28] VITALS: Ht 167.6 cm; Wt 79.5 kg
[~2021-06-28 08:30] MED LIST changes: -metroNIDAZOLE-Flagyl 500mg/NS 100ML IVPB IV ONE; +metroNIDAZOLE-Flagyl 500mg/NS 100ml IVPB IV ONE
[2021-06-28] MEDS ORDERED: BUPIVAcaine 0.5% inj/PF 30 ML ONE (11:29)
[2021-06-28] MEDS ORDERED: LIDOCAINE 1%/EPI 1:100,000 inj. 10 ML multi-dose vial ONE (11:29)
[2021-06-28] MEDS ORDERED: midazolam 1 mg/ML 2ml injection ONE (11:41)
[2021-06-28] MEDS ORDERED: propofol inj 20 ML IV ONE (11:42)
[2021-06-28] MEDS ORDERED: fentaNYL /PF 50mcg/ml 5ml ampule ONE (11:42)
[2021-06-28] MEDS ORDERED: rocuronium 10mg/ml inj IV ONE (11:42)
[2021-06-28] MEDS ORDERED: ringers solution, lacted 1,000 ML IV SCH (11:45)
[2021-06-28] MEDS ORDERED: proCHLORperazine 10 MG/2 ml inj IV PRN (11:45)
[2021-06-28] MEDS ORDERED: meperidine/PF 25mg/ml syringe IV PRN ×2 (11:45)
[2021-06-28] MEDS ORDERED: morphine 2 MG/ML inj. syringe IV PRN (11:45)
[2021-06-28] MEDS ORDERED: morphine 4 MG/ML inj SYRINge IV PRN (11:45)
[2021-06-28] MEDS ORDERED: ondansetron/PF 4mg/2ml inj IV PRN (11:45)
[2021-06-28] MEDS ORDERED: LIDOCAINE 1%/EPI 1:100,000 inj. 10 ML multi-dose vial IJ ONE (12:18)
[2021-06-28] MEDS ORDERED: BUPIVAcaine 0.5% inj/PF 30 ml vial IJ ONE (12:19)
[2021-06-28] MEDS ORDERED: sugammadex 200mg/2ml injection IV ONE (13:40)
[2021-06-28] MEDS ORDERED: naloxone 0.4 mg/ml inj IV PRN (13:55)
--- NOTE | 2021-06-28 13:55 | NUR ---
Received from OR via [facility], accompanied by Anesthesiologist and report given by Anesthesiologist. PATIENT WAKING UP, NO S/S OF PAIN, V/S WNL, SCD ON, 20G TO LUE, LAP SURGICAL SITES TO ABDOMEN CDI. F/C DRAINING CLEAR YELLOW URINE.
[2021-06-28] MEDS: meperidine/PF 25mg/ml syringe IV PRN ×3 (14:13→14:38)
[2021-06-28] MEDS: HYDROmorph./NS 0.2 mg/ml CADD 100 ML IV SCH ×4 (14:27→23:00)
--- NOTE | 2021-06-28 14:45 | NUR ---
PATIENT A&OX4, C/O INTERMITTENT PAIN LEAD GENERATION REPRESENTATIVE STARTED AND ENCOURAGED AND MULTIPLE BOLUS GIVEN PRN FOR PAIN., V/S WNL, SCD ON, 20G TO LUE, LAP SURGICAL SITES TO ABDOMEN CDI. F/C DRAINING CLEAR YELLOW URINE. PATIENT TAKEN TO 346B WITH ALL BELONGINGS AND HOOKED UP TO MONITORS IN ROOM AND REPORT GIVEN TO RN WHO HAS TAKEN OVER PATIENT CARE.
[2021-06-28] MEDS ORDERED: HYDROmorph./NS 0.2 mg/ml CADD 100 ML IV SCH (15:00)
[2021-06-28] MEDS: metroNIDAZOLE-Flagyl 500mg/NS 100 ML IV SCH ×2 (15:20→23:48)
[2021-06-28] MEDS: ceFOXitin inj 1,000 MG in normal saline 100ml IV soln 100 ML IV SCH (17:50)
[2021-06-28] MEDS: potassium CL 20mEq in D5-1/2NS 1,000 ML IV SCH ×2 (20:35→23:33)
[2021-06-28] MEDS ORDERED: potassium CL 10mEq/100ml bag 100 ML IV PRN (20:40)
[2021-06-28] MEDS ORDERED: magnesium 4gm in 100ml NS 100 ML IV PRN (20:40)
[2021-06-28] MEDS ORDERED: potassium Cl 20 mEq SR tablet PO PRN ×2 (20:40)
[2021-06-28] MEDS ORDERED: magnesium Cl slow-release 64mg tablet PO PRN (20:40)
[2021-06-28] MEDS ORDERED: magnesium 2GM in 50ml NS 50 ML IV PRN (20:40)
--- NOTE | 2021-06-28 21:25 | NUR ---
1900 pt received lying in bed. alert and oriented x 4 nad noted .pt is on r/a and o2 sat is 97_98% on r/a pt has dilaudid fire control mechanic pump in progress. pt states pain 7/10 but pain level is acceptable . pt instructed to call nurse if pain level is not acceptable. pt verbalized understanding . call light within reach
--- NOTE | 2021-06-28 21:27 | NUR ---
pt lying in bed. o2 sat noted to drop to 84% on r/a pt placed on 2l nc o2 sat 97-98% on 2l nc. bp 133/97 pt states an acceptable level of comfort. 3/10 hr noted to fluctuate from 117- 131 temp 98.6 . pt instructed on use of is and is able to pull 3250 on IS. left msg for hospitalist network relations consultant . charge fabricio grace notified . awaiting callback
--- NOTE | 2021-06-28 21:34 | NUR ---
dr magana notified . new orders received
[2021-06-28 22:35] LABS: ABG BASE EXCESS -1.6 mmol/L (-2.0-2.0); ABG HCO3 24.4 mmol/L (22.0-26.0); ABG PCO2 (T) 45.9 mmHg (35.0-48.0); ALLEN'S TEST POSITIVE; FCOHb 0.4 % (0.0-3.9); FLOW 2 L/min; FMetHb 0.2 % (0.0-1.5); FO2Hb 96.4 % (94-97); TOTAL HEMOGLOBIN 13.3 G/dl (14.0-18.0)
[2021-06-28] MEDS ORDERED: furosemide 40mg/4ml inj IV ONE (22:45)
[2021-06-28] MEDS: heparin, porcine 5000 units/ml vial SQ SCH (23:27)
[2021-06-29] VITALS: BP 136/81
[2021-06-29] MEDS: ceFOXitin inj 1,000 MG in normal saline 100ml IV soln 100 ML IV SCH (00:39)
[2021-06-29] MEDS: HYDROmorph./NS 0.2 mg/ml CADD 100 ML IV SCH ×12 (01:00→23:00)
[2021-06-29 04:00] VITALS: BP 126/92
--- NOTE | 2021-06-29 06:23 | NUR ---
0550 deni ROBERTSON PER ORDER
[2021-06-29 06:35] LABS: BASOPHILS % (AUTO) 0.2 % (0-1); EOSINOPHILS % (AUTO) 0.6 % (0-6); HEMATOCRIT 34.9 % (42.0-52.0); HEMOGLOBIN 12.2 g/dl (14.0-17.9); LYMPHOCYTES # (AUTO) 0.5 X10'3 (1.1-4.8); LYMPHOCYTES % (AUTO) 14.7 % (21-51); MEAN CORPUSCULAR HEMOGLOBIN 31.7 PG (27.0-31.0); MEAN CORPUSCULAR HGB CONC 35.1 g/dL (33.0-36.5); MEAN CORPUSCULAR VOLUME 90.2 FL (78-98); MEAN PLATELET VOLUME 8.6 FL (7.4-10.4); MONOCYTES # (AUTO) 0.5 X10'3 (0-0.9); MONOCYTES % (AUTO) 13.7 % (2-12); NEUTROPHILS # (AUTO) 2.5 X10'3 (1.8-7.7); NEUTROPHILS % (AUTO) 70.8 % (42-75); PLATELET COUNT 183 X10'3 (140-440); RED BLOOD COUNT 3.86 X10'6 (4.70-6.10); WHITE BLOOD COUNT 3.5 X10'3 (4.5-11.0)
[2021-06-29 07:00] VITALS: BP 134/84
[2021-06-29 07:05] LABS: ALANINE AMINOTRANSFERASE 40 U/L (12-78); ALBUMIN 3.3 G/DL (3.4-5.0); ALBUMIN/GLOBULIN RATIO 0.9 (1.1-1.5); ALKALINE PHOSPHATASE 92 IU/L (46-116); ANION GAP 8 (8-16); ASPARTATE AMINO TRANSFERASE 18 U/L (10-37); BILIRUBIN,TOTAL 0.6 MG/DL (0.1-1.0); BLOOD UREA NITROGEN 10 MG/DL (7-18); BUN/CREATININE RATIO 9.8 (5.4-32.0); CALCIUM 8.7 MG/DL (8.5-10.1); CHLORIDE 104 MMOL/L (99-107); CREATININE 1.02 MG/DL (0.60-1.10); GLUCOSE 109 MG/DL (70-104); MAGNESIUM 1.6 MG/DL (1.5-2.4); PHOSPHORUS 3.3 MG/DL (2.3-4.5); POTASSIUM 3.6 MMOL/L (3.5-5.1); SODIUM 142 MMOL/L (135-145); TOTAL CARBON DIOXIDE 30.1 MMOL/L (24-32); TOTAL PROTEIN 6.9 G/DL (6.4-8.2); eGFR 78 ML/MIN
[2021-06-29] MEDS: K and/or MAG REPLACEMENT MC SCH ×2 (08:00→19:45)
[2021-06-29] MEDS: metroNIDAZOLE-Flagyl 500mg/NS 100 ML IV SCH (08:33)
[2021-06-29] MEDS: heparin, porcine 5000 units/ml vial SQ SCH ×2 (08:34→19:35)
[2021-06-29] MEDS: potassium CL 20mEq in D5-1/2NS 1,000 ML IV SCH ×2 (08:34→19:34)
[2021-06-29] MEDS: ondansetron/PF 4mg/2ml inj IV PRN (08:54)
[2021-06-29] MEDS: CADD PCA waste documentation MC PRN (10:45)
[2021-06-29 12:00] VITALS: BP 137/88
[2021-06-29 20:00] VITALS: BP 127/77
[2021-06-30] VITALS: BP 138/79
[2021-06-30] MEDS: HYDROmorph./NS 0.2 mg/ml CADD 100 ML IV SCH ×11 (01:00→23:00)
--- NOTE | 2021-06-30 01:03 | NUR ---
late entry 2300 pt ambulated in [place]
[2021-06-30 06:08] LABS: BASOPHILS % (AUTO) 0.4 % (0-1); EOSINOPHILS % (AUTO) 1.3 % (0-6); HEMATOCRIT 32.1 % (42.0-52.0); HEMOGLOBIN 11.5 g/dl (14.0-17.9); LYMPHOCYTES # (AUTO) 0.7 X10'3 (1.1-4.8); LYMPHOCYTES % (AUTO) 20.7 % (21-51); MEAN CORPUSCULAR HEMOGLOBIN 31.7 PG (27.0-31.0); MEAN CORPUSCULAR HGB CONC 35.6 g/dL (33.0-36.5); MEAN PLATELET VOLUME 7.9 FL (7.4-10.4); MONOCYTES # (AUTO) 0.5 X10'3 (0-0.9); MONOCYTES % (AUTO) 13.3 % (2-12); NEUTROPHILS # (AUTO) 2.2 X10'3 (1.8-7.7); NEUTROPHILS % (AUTO) 64.3 % (42-75); PLATELET COUNT 170 X10'3 (140-440); RED BLOOD COUNT 3.61 X10'6 (4.70-6.10); RED CELL DISTRIBUTION WIDTH 14.5 % (11.5-14.5); WHITE BLOOD COUNT 3.4 X10'3 (4.5-11.0)
[2021-06-30 06:25] LABS: ALANINE AMINOTRANSFERASE 29 U/L (12-78); ALBUMIN 3.1 G/DL (3.4-5.0); ALBUMIN/GLOBULIN RATIO 0.9 (1.1-1.5); ALKALINE PHOSPHATASE 85 IU/L (46-116); ANION GAP 7 (8-16); ASPARTATE AMINO TRANSFERASE 14 U/L (10-37); BILIRUBIN,TOTAL 0.7 MG/DL (0.1-1.0); BLOOD UREA NITROGEN 6 MG/DL (7-18); BUN/CREATININE RATIO 7.1 (5.4-32.0); CALCIUM 8.5 MG/DL (8.5-10.1); CHLORIDE 102 MMOL/L (99-107); CREATININE 0.85 MG/DL (0.60-1.10); GLUCOSE 104 MG/DL (70-104); MAGNESIUM 1.6 MG/DL (1.5-2.4); PHOSPHORUS 3.1 MG/DL (2.3-4.5); POTASSIUM 3.5 MMOL/L (3.5-5.1); SODIUM 139 MMOL/L (135-145); TOTAL CARBON DIOXIDE 29.6 MMOL/L (24-32); TOTAL PROTEIN 6.6 G/DL (6.4-8.2); eGFR > 90 ML/MIN
[2021-06-30 07:00] VITALS: BP 128/79
[2021-06-30] MEDS: K and/or MAG REPLACEMENT MC SCH ×2 (07:18→20:00)
[2021-06-30] MEDS: lisinopril 10 MG tablet PO SCH (07:51)
[2021-06-30] MEDS: heparin, porcine 5000 units/ml vial SQ SCH ×2 (07:51→19:30)
[2021-06-30] MEDS: potassium CL 20mEq in D5-1/2NS 1,000 ML IV SCH (08:28)
[2021-06-30] MEDS ORDERED: HYDR-3965 PO (12:59)
[2021-06-30] MEDS: HYDROcodone/acetaminophen 5mg/325mg tablet PO PRN ×2 (15:49→21:30)
[2021-06-30] MEDS: CADD PCA waste documentation MC PRN ×2 (16:05→16:09)
--- NOTE | 2021-06-30 17:39 | NUR ---
message to dr marin "PAGER ID: [phone] MESSAGE: can you please write script for [place] q4h prn for maría 346B? surgery signed off for d/c if you can~ June RN 3 surgical [id number]"
[2021-06-30 18:00] VITALS: BP_SYST 129; BP_SYST 98; BP_DIAS 47; BP_DIAS 83
[2021-06-30] MEDS ORDERED: magnesium hydroxide 30ml (MOM) UD suspension PO ONE (19:00)
--- NOTE | 2021-06-30 19:03 | NUR ---
VO from dr stewart to hold d/c until morning d/t pharmacy being closed. also ok to not have iv access
--- NOTE | 2021-06-30 19:05 | NUR ---
Patient in room [facility]. I have received report from NIC SAINI and had the opportunity to ask questions and assume patient care.
[2021-06-30] MEDS: ondansetron/PF 4mg/2ml inj IV PRN (21:49)
[2021-07-01] VITALS: BP 117/77
[2021-07-01] MEDS: HYDROmorph./NS 0.2 mg/ml CADD 100 ML IV SCH ×4 (01:00→07:00)
[2021-07-01] MEDS ORDERED: metoclopramide 10mg tablet PO ONE (01:20)
[2021-07-01] MEDS: HYDROcodone/acetaminophen 5mg/325mg tablet PO PRN ×3 (01:30→13:59)
--- NOTE | 2021-07-01 01:46 | NUR ---
Refused SCD Addendum: 07/01/21 at 0147 by Carolyne Lawson RN Amended: Links added.
--- NOTE | 2021-07-01 06:27 | NUR ---
Problems reprioritized. Patient report given, questions answered & plan of care reviewed with Elina CACERES .
[2021-07-01 06:33] LABS: BASOPHILS % (AUTO) 0.2 % (0-1); EOSINOPHILS % (AUTO) 0.8 % (0-6); HEMATOCRIT 34.7 % (42.0-52.0); HEMOGLOBIN 12.4 g/dl (14.0-17.9); LYMPHOCYTES # (AUTO) 0.7 X10'3 (1.1-4.8); MEAN CORPUSCULAR HEMOGLOBIN 31.9 PG (27.0-31.0); MEAN CORPUSCULAR HGB CONC 35.8 g/dL (33.0-36.5); MEAN PLATELET VOLUME 8.2 FL (7.4-10.4); MONOCYTES # (AUTO) 0.3 X10'3 (0-0.9); MONOCYTES % (AUTO) 10.8 % (2-12); NEUTROPHILS # (AUTO) 2.2 X10'3 (1.8-7.7); NEUTROPHILS % (AUTO) 67.2 % (42-75); PLATELET COUNT 194 X10'3 (140-440); RED BLOOD COUNT 3.89 X10'6 (4.70-6.10); RED CELL DISTRIBUTION WIDTH 14.3 % (11.5-14.5); WHITE BLOOD COUNT 3.2 X10'3 (4.5-11.0)
[2021-07-01 06:41] LABS: ALANINE AMINOTRANSFERASE 35 U/L (12-78); ALBUMIN 3.2 G/DL (3.4-5.0); ALBUMIN/GLOBULIN RATIO 0.8 (1.1-1.5); ALKALINE PHOSPHATASE 108 IU/L (46-116); ANION GAP 8 (8-16); ASPARTATE AMINO TRANSFERASE 18 U/L (10-37); BILIRUBIN,TOTAL 0.6 MG/DL (0.1-1.0); BLOOD UREA NITROGEN 7 MG/DL (7-18); BUN/CREATININE RATIO 8.1 (5.4-32.0); CALCIUM 8.9 MG/DL (8.5-10.1); CHLORIDE 100 MMOL/L (99-107); CREATININE 0.86 MG/DL (0.60-1.10); GLUCOSE 98 MG/DL (70-104); MAGNESIUM 1.9 MG/DL (1.5-2.4); PHOSPHORUS 4.3 MG/DL (2.3-4.5); POTASSIUM 3.6 MMOL/L (3.5-5.1); SODIUM 138 MMOL/L (135-145); TOTAL CARBON DIOXIDE 30.2 MMOL/L (24-32); TOTAL PROTEIN 7.4 G/DL (6.4-8.2); eGFR > 90 ML/MIN
--- NOTE | 2021-07-01 06:47 | NUR ---
Patient in room [facility]. I have received report from PARVEEN Marmolejo and mandy Barfield RN and had the opportunity to ask questions and assume patient care.
[2021-07-01 07:00] VITALS: BP 140/85
[2021-07-01 07:54] VITALS: BP_SYST 140
[2021-07-01] MEDS: lisinopril 10 MG tablet PO SCH (07:54)
[2021-07-01] MEDS: heparin, porcine 5000 units/ml vial SQ SCH (07:55)
[2021-07-01] MEDS: ondansetron/PF 4mg/2ml inj IV PRN (07:56)
[2021-07-01] MEDS: K and/or MAG REPLACEMENT MC SCH (08:00)
--- NOTE | 2021-07-01 14:19 | NUR ---
Pt discharged to home, with all belongings, in private vehicle, accompanied by . Discharge instructions and medications reviewed. New prescription for pain medication provided to pt with instructions to take to pharmacy of choice to fill. Pt instructed to follow up with PCP, Dr Dougherty, and oncologist. Education provided regarding signs/symptoms of infection, with instructions to contact Dr Dougherty office with any concerns. Pt and stated understanding and willingness to comply with all discharge instructions. IV DC'd, cannula intact. Pt escorted to front lobby via wheelchair by RN HEMODIALYSIS CHARGE.
== END 2021-07-01 14:16 | disposition home or self-care (01) | DRG 230 ==
LOC: PAS IN 08:30 → SUR 3N 14:57
PROVIDERS: ADMIT Colon & Rectal Surgery; ATTEND Colon & Rectal Surgery
PROC: 0DBB0ZZ Excision of Ileum, Open Approach (ICD-10-PCS; principal; 2021-06-28 11:42)
DX: C20 Malignant neoplasm of rectum (principal); Z43.2 Encounter for attention to ileostomy; I10 Essential (primary) hypertension; Z79.899 Other long term (current) drug therapy
CPT/HCPCS: 36415; 36600; 71045; 80053; 82803; 82948; 83735; 84100; 85018; 85025; 86140; 86885; 86900; 86901; 87081; 87635; 93005; A4215; A4618; A7000; C1758; C9399; G0378; J0694; J1170; J1644; J1940; J2175; J2250; J2405; J2704; J3010; J3480; J3490; J7120; J8597